=== PATIENT | female | born 1935 | race African-American/Black ===

== ENCOUNTER 2017-04-17 16:37 | Observation (INO) | payer MEDICARE, OTHER ==
--- NOTE | ~2017-04-17 | CT23 ---
[facility] A Service of [facility] & [facility] RADIOLOGY TEXT RESULTS PATIENT: FLAVIA MIMS LOCATION: [facility] 337-01 : 36 UNIT #: [id number] AGE: [address]: Domonique Bland MD SEX: F ORDER DR: [id number] [facility] [address] [place], [place] [address] [id number] I MR#: [id number] Acc #: [id number] NAME: FLAVIA MIMS : 1935 SEX: F STUDY DATE/TIME: 04/19/2017 15:15 UNIT: [address] ROOM: [facility] STUDY DESCRIPTION: CT Angio Neck Attending Physician: Domonique Bland M.D. Ordering Physician: Mike Doss M.D. MEDICAL IMAGING REPORT This report is preliminary unless electronic signature is present EXAM CTA head and neck HISTORY Refer below. FINDINGS Please refer to the CTA head report on the same date for complete details. Dictated by... Manuel Timmons M.D. THIS IS AN ELECTRONICALLY VERIFIED REPORT Manuel Timmons M.D. at 04/25/2017 4:33 PM RLF/pcl TD: 04/23/2017 20:04 JOB #: [id number] MEDICAL IMAGING REPORT Page 1 of 1 COPY
--- NOTE | ~2017-04-17 | DS ---
Unit #: [id number] #: [id number] Patient: SHANNON MEAD [id number] [address] [place], [place] [address] [id number] I MR#: [id number] NAME: SHANNON MEAD ROOM: 337 Age: 81 Sex: F Admission Date: 04/18/2017 : 1935 Discharge Date: 04/22/2017 Attending Physician: Domonique Bland M.D. Primary Care Physician: [facility] DISCHARGE SUMMARY FINAL DIAGNOSES 1. Abdominal pain, which is resolved. 2. Dizziness, which is improved. 3. Hypertension. 4. Hyperlipidemia. 5. Chronic obstructive pulmonary disease. 6. Questionable mid sigmoid colon anterior wall nodule/polyp measuring up to 2.1 cm in diameter: That will need further evaluation by card clothier and possible colonoscopy. 7. Echocardiogram done during hospitalization showed ejection fraction of 50% to 55%, mildly dilated left atrium. Mild to moderate tricuspid regurgitation. Mild pulmonic valvular regurgitation. Right ventricular systolic pressure is 33. HOSPITAL COURSE Ms. Shannon Mead is an 81-year-old female who lives at home, was admitted because of dizziness and abdominal pain. Patient was admitted by Dr. Doss. Workup was done which is stable. Patient was started on Pepcid. Patient is doing much better at this time. Patient's CTA of abdomen and pelvis did not seem to have any ischemia. CT scan of the head was normal. The patient is stable. CT of the abdomen shows possible polyp. Patient will need EGD and colonoscopy. That can be done as an outpatient. The patient had hyperglycemia during hospitalization. Hemoglobin A1c was done which is 5.8. The patient is stable and is being discharged home to continue follow up as outpatient. LAB WORKUP ON DISCHARGE Sodium 138, potassium 4.4, chloride 104, BUN 13, creatinine 0.6. CBC shows WBC 7.4, hemoglobin 11.6, hematocrit 35.5 and platelet count of 168. Hemoglobin A1c 5.8. EXAMINATION ON DISCHARGE VITAL SIGNS: Blood pressure 125/83, respiratory rate 19, pulse is 78, temperature 97.8. Oxygen saturation is 100%. HEENT: Head is normocephalic. CHEST: Fair air entry. CVS: S1 is positive. Regular rhythm. ABDOMEN: Soft. EXTREMITIES: Negative edema. DISCHARGE INSTRUCTIONS 1. The patient is being discharged home in stable condition. 2. Medication as per Med Rec. 3. Follow up with Dr. Jo in one to two weeks. Dr. Jo's contact Unit #: [id number] #: [id number] Patient: SHANNON MEAD number will be given to patient. 4. Follow up with primary care provider in one week. 5. DC PICC line. 6. Patient will need EGD and colonoscopy as an outpatient. Dictated by... Monse Issa TD: 04/22/2017 16:23 JOB #: [id number] DISCHARGE SUMMARY Page 1 of 1 X Samantha Griffin MD X DISCHARGE SUMMARY
--- NOTE | ~2017-04-17 | CR72 ---
[facility] A Service of [facility] & [facility] RADIOLOGY TEXT RESULTS PATIENT: FLAVIA MIMS LOCATION: [facility] 337-01 : 36 UNIT #: [id number] AGE: [address]: Domonique Bland MD SEX: F ORDER DR: [id number] [facility] [address] [place], [place] [address] [id number] E MR#: [id number] Acc #: [id number] NAME: FLAVIA MIMS : 1935 SEX: F STUDY DATE/TIME: 04/17/2017 19:25 UNIT: [facility] ROOM: STUDY DESCRIPTION: CR Chest Single View Portable Attending Physician: Neri Hernandez D.O. Ordering Physician: Neri Hernandez D.O. Primary Care Physician: [facility] MEDICAL IMAGING REPORT This report is preliminary unless electronic signature is present EXAM Portable chest, 04/17/17 HISTORY Dizzy, hypertension, short of air, weakness today FINDINGS AP radiograph of chest is presented. No comparison chest radiograph. Mild dextroscoliosis, thoracic spine. No acute-appearing bony abnormality. Dbfe-wj-waymwxtc cardiac enlargement. Lungs somewhat hyperinflated suggesting underlying chronic airway disease. There is no indication of acute infectious or inflammatory disease, pleural effusion or pneumothorax. No suspicious nodule. Dictated by... Quentin Robles M.D. THIS IS AN ELECTRONICALLY VERIFIED REPORT Quentin Robles M.D. at 04/18/2017 5:58 PM Rosy TD: 04/17/2017 22:23 JOB #: [id number] MEDICAL IMAGING REPORT Page 1 of 1 COPY
--- NOTE | ~2017-04-17 | CT14 ---
[facility] A Service of [facility] & [facility] RADIOLOGY TEXT RESULTS PATIENT: FLAVIA MIMS LOCATION: [facility] 337- : 36 UNIT #: [id number] AGE: [address]: Domonique Bland MD SEX: F ORDER DR: [id number] [facility] [address] [place], [place] [address] [id number] I MR#: [id number] Acc #: [id number] NAME: FLAVIA MIMS : 1935 SEX: F STUDY DATE/TIME: 04/19/2017 15:34 UNIT: [address] ROOM: [facility] STUDY DESCRIPTION: CT Angio Abdomen and Pelvis Attending Physician: Domonique Bland M.D. Ordering Physician: Mike Doss M.D. MEDICAL IMAGING REPORT This report is preliminary unless electronic signature is present EXAM CT angiography abdomen and pelvis HISTORY Dizziness. Vomiting. Weakness. Symptoms for 4 days off and on. Also, generalized abdomen pain. History of hypertension. TECHNIQUE CT angiography abdomen and pelvis performed with intravenous administration of 100 mL Isovue-[address] angiogram abdomen and pelvis. Apparently, the patient had contrast administered for CT angiography of the neck and head as well. Patient's renal function reported to be normal. Monitoring of renal function recommended. COMPARISON STUDIES 01/26/2012. FINDINGS Mild bronchiectasis and dependent atelectasis at lung bases. No mucous plugging. The inferior heart and pericardium suggest mild cardiac enlargement. The liver appears mildly enlarged measuring 18.1 cm in craniocaudal extent. Probably not significantly changed from prior examination given differences in CT technique and patient positioning. No suspicious focal hepatic parenchymal abnormality. The gallbladder is unremarkable. The spleen, pancreas, adrenal glands unremarkable. Right mid-renal cysts. Contrast material in the bilateral renal collecting systems secondary to earlier contrast administration. No hydronephrosis or hydroureter. 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 There is either rejoining of the ureteral moieties at the ureterovesical junction or exertion of both ureteral moieties at the same level. Urinary bladder unremarkable. [facility] A Service of [facility] & [facility] RADIOLOGY TEXT RESULTS PATIENT: FLAVIA MIMS [id number] UNIT #: [id number] AGE: [address]: Domonique Bland MD SEX: F ORDER DR: CT PELVIS: No inguinal adenopathy. Status post hysterectomy. No abnormal adnexal structures. No pelvic or retroperitoneal adenopathy. Distal esophagus, stomach, small bowel unremarkable. I believe the patient retains a normal appendix. Muyoehsw-pv-oiolb stool burden throughout the colon and rectum with no obstructing process seen. No colonic wall or fold thickening and no pericolonic inflammatory change. Appearance may be physiologic or reflect constipation. Correlate clinically. The distal thoracic aorta is normal in caliber. The celiac axis shows yzruaqro-kx-dlhkss narrowing at its origin. Post-stenotic celiac dilatation. It measures about 7-8 mm in diameter. 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 The superior mesenteric artery is widely patent. The bilateral single renal arteries are widely patent. The inferior mesenteric artery is patent with mild disease at its origin. The abdominal aorta is moderately tortuous but normal in caliber measuring approximately 1.5 cm in diameter. There is atherosclerotic plaque but no significant luminal narrowing. The bilateral common iliac arteries are minimally ectatic measuring about 11 mm in diameter bilaterally. There is mild iliac atherosclerotic disease. The bilateral internal and external iliac arteries are patent. No significant external iliac artery disease. The bilateral common femoral arteries are patent. The bilateral visualized superficial femoral and profunda femoris arteries are patent. Multilevel degenerative changes in the spine. No acute-appearing bony abnormality. Review of the colon shows questionable mural nodule/polyp along the anterior wall of the mid-sigmoid colon measuring about 2.1 cm in maximum diameter. This may represent volume averaging through haustral fold but true nodule not excluded and assessment with endoscopy or contrast enema recommended when clinically appropriate for the patient. IMPRESSION 1. Please see the complete dictation above for full details. There is no aortic aneurysm or dissection. The visualized aortic branch vessels are patent. 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 There are no findings to raise suspicion for mesenteric ischemia. 2. Rvrmbxcu-gd-inpmk stool burden throughout colon and rectum. This may be physiologic in nature or reflect constipation. No obstructing process is seen. There is no colonic inflammatory change. 3. Questionable mid-sigmoid colon anterior wall nodule/polyp measuring up to 2.1 cm in diameter. This may simply be volume averaging through haustral fold but polyp/mass is to be excluded. Correlation with endoscopy or contrast enema recommended when STS. [facility] A Service of [facility] RADIOLOGY TEXT RESULTS PATIENT: FLAVIA MIMS LOCATION: [facility] 337-01 : 36 UNIT #: [id number] AGE: [address]: Domonique Bland MD SEX: F ORDER DR: clinically appropriate for the patient. 4. Remainder of alimentary canal unremarkable. 5. Mild hepatic enlargement, not significantly changed from [address] technique. No focal hepatic parenchymal abnormality is seen. 6. Gallbladder, pancreas, appendix unremarkable. 7. No acute appearing renal abnormality. There is a small right renal cyst. 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 8. Bronchiectasis at lung bases. No mucous plugging or bronchial wall thickening. See remainder of incidental findings in body of report above. Dictated by... Quentin Robles M.D. THIS IS AN ELECTRONICALLY VERIFIED REPORT Quentin Robles M.D. at 04/23/2017 4:56 PM MICHELE/octavia TD: 04/19/2017 23:26 JOB #: [id number] MEDICAL IMAGING REPORT Page 1 of 1 COPY
--- NOTE | ~2017-04-17 | CT17 ---
[facility] A Service of [facility] RADIOLOGY TEXT RESULTS PATIENT: FLAVIA MIMS LOCATION: [facility] 337- : 36 UNIT #: [id number] AGE: [address]: Domonique Bland MD SEX: F ORDER DR: [id number] [facility] [address] [place], [place] [address] [id number] I MR#: [id number] Acc #: [id number] NAME: FLAVIA MIMS : 1935 SEX: F STUDY DATE/TIME: 04/19/2017 15:15 UNIT: [address] ROOM: [facility] STUDY DESCRIPTION: CT Angio Head Attending Physician: Domonique Bland M.D. Ordering Physician: Mike Doss M.D. MEDICAL IMAGING REPORT This report is preliminary unless electronic signature is present EXAM CT scan head and neck with contrast with carotid CT angiography HISTORY Dizziness, weakness and vomiting intermittently over the past 4 days. TECHNIQUE Axial imaging was obtained from the mid mediastinum to the top of head with contrast. 200 mL of Isovue was used. CT angiography was performed with thick sliding MIPs, curved planar reformats and 3-D volumetric imaging with surface shaded and volume shaded display. This CT exam was performed with one or more of the following radiation dose reduction techniques: automatic exposure control, adjustment of mA and/or kV according to patient size, and iterative reconstruction. FINDINGS Extravascular structures are remarkable for a 4 mm left thyroid nodule and a 7 mm right thyroid nodule. The CT angiographic study shows mild intimal thickening at the great vessel origins without significant great vessel origin stenosis. In the posterior circulation, the left vertebral is more dominant than the right. Both vertebrals are widely patent. The basilar artery is widely patent. In the carotid circulation, there is a calcified plaque at the right carotid bifurcation. There is no significant stenosis by NASCET criteria. There is a tiny calcified plaque at the left bifurcation, again without stenosis. The distal cervical internal carotids demonstrate minimal calcified plaque in the left carotid siphon, while the right carotid [facility] A Service of [facility] RADIOLOGY TEXT RESULTS PATIENT: FLAVIA MIMS LOCATION: [facility] 337-01 : 36 UNIT #: [id number] AGE: [address]: Domonique Bland MD SEX: F ORDER DR: siphon is normal. In the intracranial circulation, there is no evidence of aneurysm, vascular malformation or major branch vessel occlusion. No severe intracranial stenosis is seen. IMPRESSION 1. Mild plaque at both bifurcations without significant stenosis by NASCET criteria. Mild plaque at the left carotid siphon and mild plaque over the aortic arch. 2. Small bilateral thyroid nodules. Consider further evaluation with ultrasound if this has not been evaluated in the past. Dictated by... Manuel Timmons M.D. THIS IS AN ELECTRONICALLY VERIFIED REPORT Manuel Timmons M.D. at 04/25/2017 4:33 PM RLF/octavia TD: 04/23/2017 20:02 JOB #: [id number] MEDICAL IMAGING REPORT Page 1 of 1 COPY
--- NOTE | ~2017-04-17 | XA166 ---
[facility] A Service of [facility] & [facility] RADIOLOGY TEXT RESULTS PATIENT: FLAVIA MIMS LOCATION: [facility] 337- : 36 UNIT #: [id number] AGE: [address]: Domonique Bland MD SEX: F ORDER DR: [id number] [facility] [address] [place], [place] [address] [id number] I MR#: [id number] Acc #: [id number] NAME: FLAVIA MIMS : 1935 SEX: F STUDY DATE/TIME: 04/19/2017 14:17 UNIT: [facility] PCU ROOM: [facility] STUDY DESCRIPTION: XA PICC Line Placement WO Port Attending Physician: Domonique Bland M.D. Ordering Physician: Grayson Bland M.D. MEDICAL IMAGING REPORT This report is preliminary unless electronic signature is present EXAM PICC line placement HISTORY Needs IV access. PRE-PROCEDURE The procedure was explained to the patient and/or patient sales representative facility services including risks, benefits, potential complications and potential for alternative forms of treatment. Informed consent was obtained, and prior to initiating the procedure a formal timeout procedure was performed. PROCEDURE Using full standard sterile barrier technique, including caps, gowns, gloves, masks, as well as sterile skin preparation and standard sterile draping, the right arm was prepped and draped in the usual fashion, and real-time sterile ultrasound guidance was used to localize an arm vein and to confirm vessel patency. A hard copy ultrasound image was recorded. After local anesthesia with 1% Xylocaine, the vein was punctured using real-time sterile ultrasound guidance, and an 0.018 guidewire was advanced into the superior vena cava, using fluoroscopic guidance. A 40-cm 5-Sami double-lumen PICC was then measured and deployed with the tip positioned in the superior vena cava. The position of the line was documented with a radiographic image. The line was secured in place with an adhesive dressing and an antibiotic patch was applied. Total fluoro time was 0.2 minutes. A single fluoroscopic spot image was obtained. Reference air kerma 1 mGy. IMPRESSION 1. Successful placement of a 5-Sami 40-cm double-lumen Power PICC via the right arm under ultrasound and fluoroscopic guidance. The tip of the PICC is in good position in the superior vena cava. [facility] A Service of [facility] RADIOLOGY TEXT RESULTS PATIENT: FLAVIA MIMS LOCATION: [facility] 337-01 : 36 UNIT #: [id number] AGE: [address]: Domonique Bland MD SEX: F ORDER DR: 2. A single fluoroscopic spot image was obtained. Dictated by... Gilbert Alcazar M.D. THIS IS AN ELECTRONICALLY VERIFIED REPORT Gilbert Alcazar M.D. at 04/20/2017 9:50 AM LENKA/octavia TD: 04/19/2017 20:58 JOB #: [id number] MEDICAL IMAGING REPORT Page 1 of 1 COPY
--- NOTE | ~2017-04-17 | EKG ---
PATIENT: FLAVIA MIMS UNIT #: [id number] Ventricular Rate: 77 BPM Atrial Rate: 77 BPM P-R Interval: 204 ms QRS Duration: 148 ms Q-T Interval: 434 ms QTC Calculation(Bezet): 491 ms P Winthrop: 68 degrees Calculated R Winthrop: -29 degrees Calculated T Winthrop: 93 degrees Diagnosis Line: Normal sinus rhythm Diagnosis Line: Left bundle branch block Diagnosis Line: Abnormal ECG Diagnosis Line: No previous ECGs available Diagnosis Line: Confirmed by HELEN ALDRIDGE MD ([id number]) on Diagnosis Line: 04/18/2017 1:17:50 PM INTERPRETING MD: STEVEN
--- NOTE | ~2017-04-17 | CT71 ---
[facility] A Service of [facility] RADIOLOGY TEXT RESULTS PATIENT: FLAVIA MIMS LOCATION: [facility] : 36 UNIT #: [id number] AGE: [address]: Neri Hernandez DO SEX: F ORDER DR: [id number] [place] [id number] [facility] [place], [place] [address] [id number] E MR#: [id number] Acc #: [id number] NAME: FLAVIA MIMS : 1935 SEX: F STUDY DATE/TIME: 04/17/2017 22:14 UNIT: [facility] ROOM: STUDY DESCRIPTION: CT Head Wo Contrast Attending Physician: Neri Hernandez D.O. Ordering Physician: Neri Hernandez D.O. MEDICAL IMAGING REPORT This report is preliminary unless electronic signature is present EXAM CT head INDICATIONS Dizziness. Weakness. Nausea and vomiting for [address] head without contrast. This CT exam was performed with one or more of the following radiation dose reduction techniques: automatic exposure control, adjustment of mA and/or kV according to patient size, and iterative reconstruction. COMPARISON None available. FINDINGS Ventricular size and configuration are normal. There is no evidence of acute infarct or hemorrhage. There are no extraaxial fluid collections. No mass lesion or mass effect is seen. There are no skull fractures. IMPRESSION Normal noncontrast head CT. Dictated by... Anibal Thomason M.D. THIS IS AN ELECTRONICALLY VERIFIED REPORT Anibal Thomason M.D. at 04/17/2017 11:24 PM RPC/pcl [facility] A Service of [facility] RADIOLOGY TEXT RESULTS PATIENT: FLAVIA MIMS LOCATION: [facility] : 36 UNIT #: [id number] AGE: [address]: Neri Hernandez DO SEX: F ORDER DR: TD: 04/17/2017 23:09 JOB #: [id number] MEDICAL IMAGING REPORT Page 1 of 1 COPY
--- NOTE | ~2017-04-17 | HP ---
Unit #: [id number] #: [id number] Patient: FLAVIA MEAD [id number] [address] [place], [place] [address] [id number] I MR#: [id number] NAME: FLAVIA MEAD ROOM: 337 Age: 81 Sex: F Admission Date: 04/18/2017 : 1935 Attending Physician: Domonique Bland M.D. Primary Care Physician: [facility] HISTORY AND PHYSICAL ADMISSION DIAGNOSES 1. Abdominal pain with dizziness. 2. History of hypertension. 3. Dyslipidemia. 4. Chronic airway disease. 5. Emphysema. HISTORY OF PRESENT ILLNESS Ms. Mead is an 81-year-old -[place] female, patient from [facility], comes to emergency room with the complaints of four-day duration of abdominal discomfort and nausea along with some dizzy spells. Patient denies any syncopal episodes, states that it has been going on for four days, denies any vomiting, denies any fever or chills, denies any shortness of air, dyspnea, headache, chest pain, states that she never had the stroke or heart attack before. She takes a blood pressure pill, cholesterol pill at home along with some baby aspirin. REVIEW OF SYSTEMS A 12-point review of systems on this patient is basically negative except as above in HPI. PAST MEDICAL HISTORY Past medical history is significant for: 1. Hypertension. 2. Dyslipidemia. PAST SURGICAL HISTORY Past surgical history is significant for hysterectomy. SOCIAL HISTORY Denies any tobacco, alcohol or illicit drug use. FAMILY HISTORY Unremarkable. PHYSICAL EXAMINATION GENERAL: Patient is an 81-year-old -[place] female not in acute distress. VITAL SIGNS: BP 148/73. Heart rate 62. Respirations 16. Temperature 97.6. HEENT: Head is atraumatic. Pupils equal, round and reactive to light. Extraocular muscles intact. Oropharynx clear. NECK: Supple. No mass. No JVD. No bruits. Unit #: [id number] #: [id number] Patient: FLAVIA MEAD CHEST: Diminished bilaterally. CARDIOVASCULAR: S1, S2. No murmurs. ABDOMEN: Soft, nontender, nondistended. EXTREMITIES: Lower extremities without any cyanosis, clubbing or edema. NEUROLOGIC: Patient alert and oriented and answering questions appropriately. No focal deficits. DIAGNOSTIC STUDIES IMAGING: Chest x-ray as above shows some chronic changes, questionable emphysema. CT of the head negative. LABORATORY: Chemistry unremarkable except a blood glucose 142. Set of cardiac enzymes negative. White count 7.7, hemoglobin and hematocrit 12.4 and 38.6. UA 2+ leukocyte esterase, the rest unremarkable. ASSESSMENT AND PLAN 1. Abdominal pain with dizziness in a patient with a history of hypertension and dyslipidemia: Will check the CT angio angio and pelvis to rule out AAA. Also CT angio of the head and neck for dizziness. 2. Hypertension: Continue home medications. 3. Dyslipidemia: Continue statins. 4. Questionable emphysema, currently stable, no respiratory distress, no wheezing. 5. Hyperglycemia, questionable diabetes: Will check hemoglobin A1C. 6. GI and DVT prophylaxis: Will start on Pepcid, put on SCDs. 7. Questionable urinary tract infection: Follow up on the urine culture. 8. The patient will be admitted for 23-hour observation. Will get PT/OT evaluation in the morning. 9. Please note that also as a workup I will get the 2D echo. Will ask Cardiology to read. Dictated by Mike Doss M.D. OC/vielka TD: 04/18/2017 18:16 JOB #: [id number] HISTORY AND PHYSICAL Page 1 of 1 X Mike Doss MD HISTORY AND PHYSICAL
[~2017-04-17 16:37] MED LIST: ASPIRIN; COVERA HS; DICLOFENAC; FLEXERIL10 MG PO; HCTZ; LORTAB 5/500 TA1 TA1 PO; MEDROL4 MG/DOSE- PO; VOLTAREN5 ML
[2017-04-17 17:18] LABS: BASOPHIL# 0.1 X10e3 (0-0.3); BASOPHIL% 0.7 % (0-2.5); EOSINOPHIL% 0.6 % (0.0-7.0); HEMATOCRIT 38.6 % (35.0-45.0); HEMOGLOBIN 12.4 gm/dL (12.0-16.0); LYMPHOCYTE# 2.3 X10e3 (1.0-3.5); LYMPHOCYTE% 30.5 % (17.0-45.0); MEAN CELL VOLUME 94.5 FL (83-96); MEAN CORPUSCULAR HEMOGLOBIN 30.4 PG (28-34); MEAN CORPUSCULAR HGB CONC 32.1 g/dL (30-36); MEAN PLATELET VOLUME 9.1 FL (6.5-11.5); MONOCYTE# 0.5 X10e3 (0-1.0); MONOCYTE% 6.7 % (3.0-12.0); NEUTROPHIL# 4.7 X10e3 (1.5-7.1); NEUTROPHIL% 61.5 % (40-75); PLATELET COUNT 235 X10e3 (140-420); RED BLOOD COUNT 4.09 X10e (3.90-5.30); RED CELL DISTRIBUTION WIDTH 14.3 % (11.0-15.5); WHITE BLOOD COUNT 7.7 X10e3 (4.0-10.5)
[2017-04-17 17:23] LABS: DIFF IND NO
[2017-04-17 17:39] LABS: ALBUMIN SERUM 4.8 g/dL (3.5-5.0); ALKALINE PHOSPHATASE 76 U/L (32-92); ALT (SGPT) 14 U/L (10-40); AST (SGOT) 16 U/L (10-42); BILIRUBIN,TOTAL 0.5 mg/dL (0.2-2.0); BLOOD UREA NITROGEN 14 mg/dL (9-23); CALCIUM SERUM 10.2 mg/dL (8.4-10.2); CARBON DIOXIDE 29 mmol/L (22-31); CHLORIDE 100 mmol/L (100-111); CREATININE SERUM 0.8 mg/dL (0.6-1.4); GLOM FILT RATE Estimated 80.8 mL/min (>60); GLUCOSE FASTING 142 mg/dL (70-110); POTASSIUM 3.9 mmol/L (3.5-5.1); PROTEIN TOTAL SERUM 8.3 g/dL (6.0-8.3); SODIUM 139 mmol/L (135-145)
[2017-04-17 17:40] LABS: BILIRUBIN, DIRECT <0.1 mg/dL (0.0-0.2); BILIRUBIN,INDIRECT 0.4 mg/dL (0.0-0.9)
[2017-04-17 19:25] LABS: POC - CKMB 2.1 ng/mL (0.0-7.9); POC - TROPONIN <0.05 ng/mL (<=0.05)
[2017-04-17 22:23] LABS: URINE SOURCE CLEAN CATCH
[2017-04-17 22:42] LABS: URBCS1 AUWI 0-2 /[HPF] (0-2); URINE APPEARANCE CLEAR; URINE BACTERIA AUWI NEG (NEGATIVE); URINE BILIRUBIN NEG (NEG); URINE BLOOD NEG (NEG); URINE COLOR YELLOW; URINE GLUCOSE NEG (NEG); URINE KETONE NEG (NEG); URINE LEUKOCYTE ESTERASE 2+ (NEG); URINE NITRATE NEG (NEG); URINE PROTEIN NEG (NEG); URINE SPECIFIC GRAVITY 1.008 (1.003-1.035); URINE SQUAMOUS EPITHELIAL CELL NONE SEEN /[HPF]; URINE UROBILINOGEN 0.2 MG/DL (NEG)
[2017-04-17 22:55] LABS: CULTURE INDICATED? NO; UWBCS1 AUWI 0-2 (0-5)
[2017-04-17 23:18] LABS: POC - CKMB 2.4 ng/mL (0.0-7.9); POC - TROPONIN <0.05 ng/mL (<=0.05)
[2017-04-18 00:06] LABS: POC - CKMB <1.0 ng/mL (0.0-7.9); POC - TROPONIN <0.05 ng/mL (<=0.05)
[2017-04-18] MEDS ORDERED: COZAAR100 MG PO (00:35)
[2017-04-18] MEDS ORDERED: VERAPAMIL ER240 MG PO (00:36)
[2017-04-18] MEDS ORDERED: MICROZIDE12.5 M1 PO (00:36)
[2017-04-18] MEDS ORDERED: LOW DOSE ASPIRI81 M1 PO (00:37)
[2017-04-18] MEDS ORDERED: LOSARTAN POTASS50 MG PO (00:37)
[2017-04-18] MEDS ORDERED: LATANOPROST2.5 ML OU (00:38)
[2017-04-19 08:09] LABS: CALCIUM SERUM 9.5 mg/dL (8.4-10.2); CREATININE SERUM 0.7 mg/dL (0.6-1.4); GLOM FILT RATE Estimated 94.8 mL/min (>60); POTASSIUM 3.7 mmol/L (3.5-5.1)
[2017-04-20 05:34] LABS: BASOPHIL# 0.1 X10e3 (0-0.3); BASOPHIL% 0.9 % (0-2.5); EOSINOPHIL# 0.1 X10e3 (0-0.7); EOSINOPHIL% 1.4 % (0.0-7.0); HEMATOCRIT 35.5 % (35.0-45.0); HEMOGLOBIN 11.6 gm/dL (12.0-16.0); LYMPHOCYTE# 1.7 X10e3 (1.0-3.5); MEAN CELL VOLUME 93.8 FL (83-96); MEAN CORPUSCULAR HEMOGLOBIN 30.7 PG (28-34); MEAN CORPUSCULAR HGB CONC 32.7 g/dL (30-36); MEAN PLATELET VOLUME 9.4 FL (6.5-11.5); MONOCYTE# 0.5 X10e3 (0-1.0); MONOCYTE% 6.4 % (3.0-12.0); NEUTROPHIL# 5.1 X10e3 (1.5-7.1); NEUTROPHIL% 68.3 % (40-75); PLATELET COUNT 168 X10e3 (140-420); RED BLOOD COUNT 3.78 X10e (3.90-5.30); RED CELL DISTRIBUTION WIDTH 14.4 % (11.0-15.5); WHITE BLOOD COUNT 7.4 X10e3 (4.0-10.5)
[2017-04-20 05:35] LABS: DIFF IND NO
[2017-04-20 06:16] LABS: CALCIUM SERUM 9.5 mg/dL (8.4-10.2); CREATININE SERUM 0.5 mg/dL (0.6-1.4); POTASSIUM 4.5 mmol/L (3.5-5.1)
[2017-04-22 08:32] LABS: BUN/CREATININE RATIO 21.66; CALCIUM SERUM 9.7 mg/dL (8.4-10.2); CREATININE SERUM 0.6 mg/dL (0.6-1.4); GLOM FILT RATE Estimated 99.8 mL/min (>60); MAGNESIUM 1.8 mg/dL (1.6-3.0); POTASSIUM 4.4 mmol/L (3.5-5.1)
[2017-04-22] MEDS ORDERED: PEPCID AC20 M2 PO (15:06)
== END 2017-04-22 15:32 | disposition home or self-care (01) ==
LOC: CED 16:37 → C3A PCU 04-18 01:23 → CEDOF 04-18 01:23 → CED 04-18 01:23 → C3A PCU 04-18 05:02 → CEDOF 04-18 05:02 → C3A PCU 04-22 15:32
PROVIDERS: Emergency Medicine; Hospitalist; Internal Medicine
PROC: 02HV33Z Insertion of Infusion Device into Superior Vena Cava, Percutaneous Approach (ICD-10-PCS; principal; 2017-04-18)
DX: R10.9 Unspecified abdominal pain (principal); R42 Dizziness and giddiness; I10 Essential (primary) hypertension; E78.5 Hyperlipidemia, unspecified; J44.9 Chronic obstructive pulmonary disease, unspecified; I51.7 Cardiomegaly; I36.1 Nonrheumatic tricuspid (valve) insufficiency; I37.1 Nonrheumatic pulmonary valve insufficiency; J47.9 Bronchiectasis, uncomplicated; R16.0 Hepatomegaly, not elsewhere classified; R73.9 Hyperglycemia, unspecified; I65.23 Occlusion and stenosis of bilateral carotid arteries; I70.0 Atherosclerosis of aorta; E04.1 Nontoxic single thyroid nodule; N28.1 Cyst of kidney, acquired; I70.8 Atherosclerosis of other arteries; Z79.899 Other long term (current) drug therapy; Z79.82 Long term (current) use of aspirin; Z90.710 Acquired absence of both cervix and uterus; Z88.2 Allergy status to sulfonamides
CPT/HCPCS: 70450; 70496; 70498; 71010; 74174; 76937; 77001; 80048; 80076; 81003; 82553; 83036; 83735; 84484; 85025; 93005; 93306; 97161; 97165; 99285; C1751; G0378; G8978-GP; G8979-GP; G8980-GP; G8987-GO; G8988-GO; G8989-GO; Q9967

== ENCOUNTER → 2017-07-16 | Outpatient (CLI) | payer OTHER ==
[~2017-07-16] MED LIST changes: +COZAAR100 MG PO; +LATANOPROST2.5 ML OU; +LOSARTAN POTASS50 MG PO; +LOW DOSE ASPIRI81 M1 PO; +MICROZIDE12.5 M1 PO; +PEPCID AC20 M2 PO; +VERAPAMIL ER240 MG PO
== END | disposition home or self-care (01) ==
LOC: CECH 13:12
DX: R06.00 Dyspnea, unspecified (principal); I07.1 Rheumatic tricuspid insufficiency; I51.7 Cardiomegaly; I31.3 Pericardial effusion (noninflammatory); I51.9 Heart disease, unspecified
CPT/HCPCS: 93306